=== PATIENT | male | born 1985 | race Caucasian/White ===

== ENCOUNTER 2018-02-18 21:22 | Inpatient (IN) ==
[2018-02-18] MEDS ORDERED: Piperacil/Tazo 3.375 GM Premix 50 ML IV.SIG ONE (22:25)
[2018-02-18] MEDS ORDERED: Vancomycin Inj 1,000 MG in Sodium Chlor 0.9% Inj 250 ML IV.SIG ONE (22:25)
[2018-02-18] MEDS ORDERED: Sod Chloride 0.9% Inj 1,000 ML IV.SIG ONE (22:25)
--- NOTE | 2018-02-18 22:35 | ED ---
HPI General Chief complaint: Skin/Abscess/Foreign Body Stated complaint: Spider bite Time Seen by Provider: 02/18/18 22:02 Source: patient Limitations: no limitations History of Present Illness HPI narrative: The patient is a 32 year old male who presents to the [facility] emergency department with a history of 2 weeks ago noticing what appeared to be an insect bite to the right hand between the second MCP and PIP joint dorsally. He reports that he was scratching the area when he first noticed it. He reports that subsequent to scratching at it became enlarged, painful, and began to drain a yellow drainage. He reports that he has had fevers associated with this. He does not have a thermometer, therefore he could not check his actual temperature. He reports that he obtained some antibiotic from a friend and completed 3 days of clindamycin of unknown dose at 3 times a day. He reports that prior to starting the antibiotic he had swelling into his hand and forearm. He reports that the swelling improved, however he ran out of the antibiotic 2 days ago and the swelling and pain have increased again. He reports having associated chills. He denies having any nausea, vomiting, or diarrhea. He denies any history of IV drug use. He reports that his last bowel movement was yesterday. He denies having any blood in his stool. He denies having any chest pain, chest pressure, or shortness of breath associated with this. He reports that his tetanus was last updated over 10 years ago. On review of systems otherwise, the patient denies having any cough, congestion, neck pain, abdominal pain, urinary symptoms, or neurologic symptoms. Related Data Home Medications Medication Instructions Recorded Confirmed No Known Home Medications 02/18/18 02/18/18 Allergies Allergy/AdvReac Type Severity Reaction Status Date / Time No Known Allergies Allergy Verified 02/18/18 21:50 Review of Systems ROS: all other systems reviewed are negative FOR[facility]LY [facility] Medical History Medical History Patient denies medical problems (Acute) Surgical History Surgical History No history of previous surgery (Acute) Family History Family History Other No pertinent family history Social History Social History Substance History: Active Abuse Second Hand Smoke Exposure: Yes Smoking Status: Current every day smoker Tobacco Type: Cigarettes Packs Per Day: 1.5 Cigarettes Per Day: 30.0 How Often Do You Have a Drink Containing Alcohol: Never Recent Travel in [facility] within the Last 8 Weeks: No Recent Out of Country Travel within the Last 8 Weeks: No Substance Abuse Detail Marijuana: Substance Use Status: Active Immunization History Tetanus Immunization: Unsure Exam Const General: cooperative, no acute distress and well developed Nutritional Appearance: well nourished Orientation: alert, awake and oriented x3 HENMT Head: normocephalic and atraumatic Nose: no nasal discharge and no epistaxis Mouth: moist mucous membranes Eyes Sclera: normal sclerae Pupils: PERRL Neck Neck: trachea midline and no JVD Resp Effort & Inspection: no use of accessory muscles Auscultation: clear to auscultation bilaterally Cardio Rate: regular rate Rhythm: regular rhythm Heart Sounds: no murmurs GI Inspection: non-distended Palpation: soft, no hepatosplenomegaly and nontender Back/Spine/Pelvis Back: no CVA tenderness Cervical Spine: No cervical spinal tenderness Thoracic/Lumbar Spine: No thoracic spinal tenderness and No lumbar spinal tenderness Skin General: dry skin (warm) Neuro General: alert, awake, oriented x3 and other (Grossly nonfocal.) Speech: speech normal Motor: no movement abnormalities noted Extrem General: normal to inspection (Except in the area of interest, the right upper extremity, right hand. The patient has a wound that is approximately 1-1/2 cm between the distal MCP and PIP joint of the second digit. The patient has diminished extension noted of this right second digit. The patient has swelling diffusely from the PIP to the MCP and swelling along the dorsum of the hand with tenderness. The patient reports having tingling sensations to the tip of the finger along the finger pad of the second digit. The wound is draining a yellow drainage. This was cultured.), no calf tenderness bilaterally , no clubbing, no cyanosis and no edema Psych Mood: congruent mood Affect: normal affect Judgment: judgment good Course Consultations Consultation #1: The patient's case including history, pertinent physical examination findings, and laboratory studies were discussed with Dr. Hanson, the hand surgeon file conversion operator. He explained that the patient will be seen in consultation. He requested that the patient be admitted to the hospitalist service. Time: 23:50 Initial Documented Vital Signs Temperature 97.7 F 02/18/18 21:45 Pulse Rate 85 02/18/18 21:45 Respiratory Rate 20 02/18/18 21:45 Blood Pressure 195/118 H 02/18/18 21:45 Pulse Oximetry 99 02/18/18 21:45 Last Documented Vital Signs Temperature 97.6 F 02/19/18 16:00 Pulse Rate 71 02/19/18 16:00 Respiratory Rate 16 02/19/18 16:00 Blood Pressure 128/80 02/19/18 16:00 Pulse Oximetry 98 02/19/18 16:00 Medical Decision Making MDM Narrative Medical decision making narrative: During the course of the patient's emergency department visit, the patient's history, examination, and differential diagnosis were reviewed with the patient. The patient was placed on a checking department supervisor with oximetry and frequent blood pressure monitoring. The patient had IV access obtained and blood work sent for analysis. The patient was initially provided normal saline 1 L IV fluid bolus, Zosyn 3.375 g IV, vancomycin 1 g IV. The patient was given Toradol for pain. Diagnostic studies are remarkable for a CBC that essentially is within normal limits, PT 10.7, PTT 27.9, chemistry is remarkable for GFR of 83, lactic acid within normal limits, C-reactive protein is 1.7, lipase 100, urinalysis is unremarkable, urine drug screen is positive for amphetamines and cannabinoids, chest x-ray shows no acute abnormality, hand x-ray shows soft tissue swelling of the index finger, no other acute abnormality. The patient's case was discussed with a hand surgeon who will see the patient in consultation. The patient's case including history, pertinent physical examination findings, and laboratory studies were discussed with Dr. Tomlinson. It was agreed that the patient would be admitted to the hospitalist service. The patient's results were discussed with the patient, including the plan of care. I explained that further testing and/ or monitoring is indicated based on the patient's history, examination, and/ or laboratory findings. Therefore, I recommended admission for additional evaluation. The patient expressed understanding and was agreeable with this plan. The patient was admitted to the hospital in stable condition and sent to a bed under the care of the [facility] service. Medical Screen Exam Complete: Yes Emergency Medical Condition: Yes Differential Diagnosis Differential Diagnosis: Osteomyelitis, versus sepsis from skin infection, versus deep hand infection Medical Records Medical records reviewed: Yes I reviewed the patient's medical records. Lab Data Lab results reviewed: Yes I reviewed the patient's lab results. Result diagrams: 02/18/18 22:42 02/18/18 22:42 Lab Results 02/18/18 02/18/18 02/18/18 Range/Units 22:42 22:42 22:42 WBC 7.4 (4.0-11.0) th/mm3 RBC 5.25 (4.50-5.90) mil/mm3 Hgb 15.4 (13.0-17.0) gm/dL Hct 44.0 (39.0-51.0) % MCV 83.8 (80.0-100.0) fL MCH 29.3 (27.0-34.0) pg MCHC 35.0 (32.0-36.0) % RDW 13.6 (11.6-17.2) % Plt Count 232 (150-450) th/mm3 MPV 8.9 (7.0-11.0) fL Neut % (Auto) 61.3 (16.0-70.0) % Lymph % (Auto) 25.9 (9.0-44.0) % [place] % (Auto) 9.8 H (0.0-8.0) % Eos % (Auto) 2.0 (0.0-4.0) % Baso % (Auto) 1.0 (0.0-2.0) % Neut # (Auto) 4.5 (1.8-7.7) th/mm3 Lymph # (Auto) 1.9 (1.0-4.8) th/mm3 [place] # (Auto) 0.7 (0.0-0.9) th/mm3 Eos # (Auto) 0.2 (0.0-0.4) th/mm3 Baso # (Auto) 0.1 (0.0-0.2) th/mm3 WBC Differential . Differential Comment Auto diff final ESR (0-15) mm/hr PT 10.7 (9.8-11.6) sec INR 1.1 Ratio APTT 27.9 (23.4-31.7) sec Sodium 139 (136-145) meq/L Potassium 3.7 (3.5-5.1) meq/L Chloride 106 (98-107) meq/L Carbon Dioxide 26.7 (21.0-32.0) meq/L Anion Gap 6 (5-15) meq/L BUN 17 (7-18) mg/dL Creatinine 1.03 (0.60-1.30) mg/dL Estimated GFR 83 L (>89) mL/min Random Glucose 79 (74-106) mg/dL Lactic Acid (0.4-2.0) mmol/L Calcium 9.1 (8.5-10.1) mg/dL Magnesium 1.9 (1.5-2.5) mg/dL Total Bilirubin 0.7 (0.2-1.0) mg/dL AST 20 (15-37) U/L ALT 19 (12-78) U/L Alkaline Phosphatase 83 (45-117) U/L C-Reactive Protein 1.70 H (0.00-0.30) mg/dL Total Protein 8.1 (6.4-8.2) g/dL Albumin 3.9 (3.4-5.0) g/dL Lipase 100 (73-393) U/L Urine Color (Yellw/Straw) Urine Clarity (Clear) Urine pH (5.0-8.5) Ur Specific [place] (1.002-1.035) Urine Protein (Neg-Trace) mg/dL Urine Glucose (UA) (Negative) mg/dL Urine Ketones (Negative) mg/dL Urine Occult Blood (Negative) Urine Nitrate (Negative) Urine Bilirubin (Negative) Urine Urobilinogen (Less than 2) mg/dL Ur Leukocyte Esterase (Negative) Urine RBC (0-3) /hpf Urine WBC (0-5) /hpf Urine Mucus (Occasional) /lpf Micro UA Comment Ur Microscopic Review Urine Culture Comments Urine Opiates Screen (Neg) Ur Barbiturates Screen (Neg) Ur Amphetamines Screen (Neg) U Benzodiazepines Scrn (Neg) Urine Cocaine Screen (Neg) U Cannabinoids Screen (Neg) 02/18/18 02/18/18 02/19/18 Range/Units 22:42 22:47 11:00 WBC (4.0-11.0) th/mm3 RBC (4.50-5.90) mil/mm3 Hgb (13.0-17.0) gm/dL Hct (39.0-51.0) % MCV (80.0-100.0) fL MCH (27.0-34.0) pg MCHC (32.0-36.0) % RDW (11.6-17.2) % Plt Count (150-450) th/mm3 MPV (7.0-11.0) fL Neut % (Auto) (16.0-70.0) % Lymph % (Auto) (9.0-44.0) % [place] % (Auto) (0.0-8.0) % Eos % (Auto) (0.0-4.0) % Baso % (Auto) (0.0-2.0) % Neut # (Auto) (1.8-7.7) th/mm3 Lymph # (Auto) (1.0-4.8) th/mm3 [place] # (Auto) (0.0-0.9) th/mm3 Eos # (Auto) (0.0-0.4) th/mm3 Baso # (Auto) (0.0-0.2) th/mm3 WBC Differential Differential Comment ESR 25 H (0-15) mm/hr PT (9.8-11.6) sec INR Ratio APTT (23.4-31.7) sec Sodium (136-145) meq/L Potassium (3.5-5.1) meq/L Chloride (98-107) meq/L Carbon Dioxide (21.0-32.0) meq/L Anion Gap (5-15) meq/L BUN (7-18) mg/dL Creatinine (0.60-1.30) mg/dL Estimated GFR (>89) mL/min Random Glucose (74-106) mg/dL Lactic Acid 1.0 (0.4-2.0) mmol/L Calcium (8.5-10.1) mg/dL Magnesium (1.5-2.5) mg/dL Total Bilirubin (0.2-1.0) mg/dL AST (15-37) U/L ALT (12-78) U/L Alkaline Phosphatase (45-117) U/L C-Reactive Protein (0.00-0.30) mg/dL Total Protein (6.4-8.2) g/dL Albumin (3.4-5.0) g/dL Lipase (73-393) U/L Urine Color Yellow (Yellw/Straw) Urine Clarity Clear (Clear) Urine pH 5.0 (5.0-8.5) Ur Specific [place] 1.023 (1.002-1.035) Urine Protein Negative (Neg-Trace) mg/dL Urine Glucose (UA) Negative (Negative) mg/dL Urine Ketones 20 (Negative) mg/dL Urine Occult Blood Negative (Negative) Urine Nitrate Negative (Negative) Urine Bilirubin Negative (Negative) Urine Urobilinogen Less than 2 (Less than 2) mg/dL Ur Leukocyte Esterase Negative (Negative) Urine RBC Less than 1 (0-3) /hpf Urine WBC 2 (0-5) /hpf Urine Mucus Few H (Occasional) /lpf Micro UA Comment Culture not ind Ur Microscopic Review Not Reportable Urine Culture Comments Culture not ind Urine Opiates Screen (Neg) Ur Barbiturates Screen (Neg) Ur Amphetamines Screen (Neg) U Benzodiazepines Scrn (Neg) Urine Cocaine Screen (Neg) U Cannabinoids Screen (Neg) 02/19/18 Range/Units 11:00 WBC (4.0-11.0) th/mm3 RBC (4.50-5.90) mil/mm3 Hgb (13.0-17.0) gm/dL Hct (39.0-51.0) % MCV (80.0-100.0) fL MCH (27.0-34.0) pg MCHC (32.0-36.0) % RDW (11.6-17.2) % Plt Count (150-450) th/mm3 MPV (7.0-11.0) fL Neut % (Auto) (16.0-70.0) % Lymph % (Auto) (9.0-44.0) % [place] % (Auto) (0.0-8.0) % Eos % (Auto) (0.0-4.0) % Baso % (Auto) (0.0-2.0) % Neut # (Auto) (1.8-7.7) th/mm3 Lymph # (Auto) (1.0-4.8) th/mm3 [place] # (Auto) (0.0-0.9) th/mm3 Eos # (Auto) (0.0-0.4) th/mm3 Baso # (Auto) (0.0-0.2) th/mm3 WBC Differential Differential Comment ESR (0-15) mm/hr PT (9.8-11.6) sec INR Ratio APTT (23.4-31.7) sec Sodium (136-145) meq/L Potassium (3.5-5.1) meq/L Chloride (98-107) meq/L Carbon Dioxide (21.0-32.0) meq/L Anion Gap (5-15) meq/L BUN (7-18) mg/dL Creatinine (0.60-1.30) mg/dL Estimated GFR (>89) mL/min Random Glucose (74-106) mg/dL Lactic Acid (0.4-2.0) mmol/L Calcium (8.5-10.1) mg/dL Magnesium (1.5-2.5) mg/dL Total Bilirubin (0.2-1.0) mg/dL AST (15-37) U/L ALT (12-78) U/L Alkaline Phosphatase (45-117) U/L C-Reactive Protein (0.00-0.30) mg/dL Total Protein (6.4-8.2) g/dL Albumin (3.4-5.0) g/dL Lipase (73-393) U/L Urine Color (Yellw/Straw) Urine Clarity (Clear) Urine pH (5.0-8.5) Ur Specific [place] (1.002-1.035) Urine Protein (Neg-Trace) mg/dL Urine Glucose (UA) (Negative) mg/dL Urine Ketones (Negative) mg/dL Urine Occult Blood (Negative) Urine Nitrate (Negative) Urine Bilirubin (Negative) Urine Urobilinogen (Less than 2) mg/dL Ur Leukocyte Esterase (Negative) Urine RBC (0-3) /hpf Urine WBC (0-5) /hpf Urine Mucus (Occasional) /lpf Micro UA Comment Ur Microscopic Review Urine Culture Comments Urine Opiates Screen Neg (Neg) Ur Barbiturates Screen Neg (Neg) Ur Amphetamines Screen Pos H (Neg) U Benzodiazepines Scrn Neg (Neg) Urine Cocaine Screen Neg (Neg) U Cannabinoids Screen Pos H (Neg) Imaging Data Radiologist's impression: Chest X-Ray 02/18/18 22:23 CONCLUSION: No acute cardiopulmonary disease identified. Hand X-Ray 02/18/18 22:23 CONCLUSION: Soft tissue swelling of the index finger. Otherwise within normal limits. ECG Data Attestation: I personally reviewed and interpreted this ECG as follows: Interpretation: The patient had an EKG done on arrival. The patient's EKG reveals a sinus rhythm, heart rate is 79, QRS duration is 97 ms, [address] segment elevation, T waves are inverted in V1. Discharge Plan Discharge Disposition Patient Disposition: ED Admit(ED Internal Use Only) Discharge Order Discharge Orders: ED Use Only Admit Order (Routine); Ordered 02/19/18 Ordered By: Latasha Betancourt Discharge Details Diagnosis: Infection of right hand Physicians Team ED Provider: Latasha Betancourt Primary Care Provider: UNKNOWN, Attending Provider: Nikos Bo Other Providers: Melchor Hanson Status ED Status: Left Department Discharge Information Discharge Date/Time: 02/19/18 01:34
[2018-02-18] MEDS ORDERED: Diphtheria/Tetanus/Pertussis Vaccine Inj 0.5 ML Syringe IM ONE (22:37)
[2018-02-18 23:00] LABS: Baso # (Auto) 0.1 th/mm3 (0.0-0.2); Eos # (Auto) 0.2 th/mm3 (0.0-0.4); Hemoglobin 15.4 gm/dL (13.0-17.0); Lymph # (Auto) 1.9 th/mm3 (1.0-4.8); Lymph % (Auto) 25.9 % (9.0-44.0); Mean Corpuscular Hemoglobin 29.3 pg (27.0-34.0); Mean Corpuscular Volume 83.8 fL (80.0-100.0); Mean Platelet Volume 8.9 fL (7.0-11.0); Mono # (Auto) 0.7 th/mm3 (0.0-0.9); Mono % (Auto) 9.8 % (0.0-8.0); Neut # (Auto) 4.5 th/mm3 (1.8-7.7); Neut % (Auto) 61.3 % (16.0-70.0); Platelet Count 232 th/mm3 (150-450); Red Blood Count 5.25 mil/mm3 (4.50-5.90); Red Cell Distribution Width 13.6 % (11.6-17.2); White Blood Count 7.4 th/mm3 (4.0-11.0)
[2018-02-18 23:10] LABS: Activated Partial Thrombo Time 27.9 sec (23.4-31.7); INR 1.1 Ratio; Prothrombin Time 10.7 sec (9.8-11.6)
[2018-02-18] MEDS ORDERED: Ketorolac Inj 30 MG/ML (IVP) Vial IV.PUSH ONE (23:10)
--- NOTE | 2018-02-18 23:10 | XR ---
EXAM DATE: 02/18/2018 11:01 PM EST AGE/SEX: 32 years / Male INDICATIONS: Short of breath. CLINICAL DATA: This is the patient's initial encounter. Patient reports that signs and symptoms have been present for 1 day and indicates a pain score of 0/10. MEDICAL/SURGICAL HISTORY: None. None. COMPARISON: No prior exams available for comparison. FINDINGS: Single AP view of the chest The lungs are clear. Cardiomediastinal silhouette within norm al limits. No evidence of pleural effusion or pneumothorax. Old left clavicle fracture noted. CONCLUSION: No acute cardiopulmonary disease identified. Electronically signed by: Jeffrey Cline MD 02/18/2018 11:09 PM EST
--- NOTE | 2018-02-18 23:11 | XR ---
EXAM DATE: 02/18/2018 11:03 PM EST AGE/SEX: 32 years / Male INDICATIONS: Left hand pain, possible spider bite. CLINICAL DATA: This is the patient's initial encounter. Patient reports that signs and symptoms have been present for 2 weeks and indicates a pain score of 6/10. MEDICAL/SURGICAL HISTORY: None. None. COMPARISON: No prior exams available for comparison. FINDINGS: 3 views left hand. Soft tissue swelling of the index finger noted. Bone alignment within normal limit s. No evidence of fracture. No radiopaque foreign body identified. No bone erosion. CONCLUSION: Soft tissue swelling of the index finger. Otherwise within normal limits. Electronically signed by: Jeffrey Cline MD 02/18/2018 11:10 PM EST
[2018-02-18 23:14] LABS: Alanine Aminotransferase 19 U/L (12-78)
[2018-02-18 23:16] LABS: Alkaline Phosphatase 83 U/L (45-117); Total Protein 8.1 g/dL (6.4-8.2)
[2018-02-18 23:19] LABS: Albumin 3.9 g/dL (3.4-5.0); Anion Gap 6 meq/L (5-15); Aspartate Aminotransferase 20 U/L (15-37); Blood Urea Nitrogen 17 mg/dL (7-18); Calcium 9.1 mg/dL (8.5-10.1); Carbon Dioxide 26.7 meq/L (21.0-32.0); Chloride 106 meq/L (98-107); Glomerular Filtration Rate 83 mL/min (>89); Glucose,Random 79 mg/dL (74-106); Lipase 100 U/L (73-393); Magnesium 1.9 mg/dL (1.5-2.5); Sodium 139 meq/L (136-145)
[2018-02-18 23:22] LABS: Potassium 3.7 meq/L (3.5-5.1)
[2018-02-19] MEDS ORDERED: Bisacodyl 10 MG Supp RECTAL PRN (00:20)
[2018-02-19] MEDS ORDERED: Acetaminophen 325 MG Tablet PO PRN (00:20)
[2018-02-19] MEDS ORDERED: Vancomycin Consult Pharmacy OTHER PRN (00:30)
[2018-02-19] MEDS: Sod Chloride 0.9% Inj 1,000 ML IV.CONT SCH ×3 (01:48→12:59)
[2018-02-19] MEDS ORDERED: Vancomycin Inj 1,000 MG in Sodium Chlor 0.9% Inj 250 ML IV.SIG ONE (02:00)
[2018-02-19] MEDS: Piperacil/Tazo 3.375 GM Premix 50 ML IV.SIG SCH ×3 (05:19→20:37)
--- NOTE | 2018-02-19 07:01 | P.HPIM ---
History of Present Illness Primary Care Physician: UNKNOWN History of Present Illness: 32-year-old male who presents with a 2-week history of worsening left base of first finger pain with purulent drainage. Patient reports subjective fevers. Denies any chest pain or shortness of breath. Patient denies any history of IV drug use. Patient reports using clindamycin 3 times a day times 3 days, provided by a colleague, however this ended 3 days ago and swelling has been getting worse.. Inpatient Certification: I certify that the inpatient services were ordered in accordance with Medicare regulations governing the order. This includes certification that hospital inpatient services are reasonable and necessary and in the case of services not specified as inpatient-only under 42 CFR 419.22(n), that they are appropriately provided as inpatient services in accordance to with the 2-midnight benchmark under 43 CFR 412.3(e) Estimated Total Length of Stay (Days): 3 Plans for Post Hospital Care: Not yet determined Review of Systems All other systems reviewed negative except as stated in HPI PMFSH - History History Provided By: Patient - Medical History Medical History: Medical History (Last Updated 02/21/18 @ 10:51 by Daniella Chairez) History of MRSA infection Onset Date: ~02/18/18 Patient denies medical problems - Surgical History Surgical History: Surgical History (Last Reviewed 02/21/18 @ 08:59 by Nargis Avila) No history of previous surgery - Family History Family History: Family History (Last Updated 02/19/18 @ 06:36 by Michael Tomlinson MD) Other No pertinent family history - Tobacco History Second Hand Smoke Exposure: Yes Tobacco Use In Past 30 Days: Yes Smoking Status: Current every day smoker Tobacco Type: Cigarettes Packs Per Day: 1.5 Cigarettes Per Day: 30.0 - Alcohol History How Often Do You Have a Drink Containing Alcohol: Never - Substance Use History Substance History: Active Abuse - Substance Use Type Marijuana Status: Active Route Used: Inhalation Reason for Use: Calm Down - Travel History Recent Travel in the [place] Within the Last 8 Weeks: No Recent Travel Out of the Country Within the Last 8 Weeks: No - Immunization History Tetanus Immunization: Unsure Medications and Allergies Active Medications: Active Medications Acetaminophen (Tylenol) 650 mg PO Q4H PRN PRN Reason: Temp > 100.4 Al Hydroxide/Mg Hydroxide (Milk Of Magnesia Liq) 30 ml PO Q12H PRN PRN Reason: Mild Constipation Bisacodyl (Dulcolax Supp) 10 mg RECTAL DAILY PRN PRN Reason: SEVERE CONSITIPATION Sodium Chloride (Ns Inj) 1,000 mls @ 100 mls/hr IV.CONT .Q10H [facility] Last Admin: 02/19/18 01:48 Dose: 100 mls/hr Piperacillin/Tazobactam/Dextrose (Zosyn 3.375 Gm Premix) 50 mls @ 100 mls/hr IV.SIG Q6HR [facility] Last Infusion: 02/19/18 05:53 Dose: Infused Lactulose (Lactulose Liq) 30 ml PO DAILY PRN PRN Reason: SEVERE CONSITIPATION Ondansetron HCl (Zofran Inj) 4 mg IV.PUSH Q6H PRN PRN Reason: NAUSEA OR VOMITING Pharmacy Profile Note (Vancomycin Consult Pharmacy) 1 each OTHER UNSCH PRN PRN Reason: Pharmacy to dose Sennosides (Senokot) 17.2 mg PO Q12H PRN PRN Reason: Moderate Constipation Sodium Chloride (Ns Flush) 2 ml IV.FLUSH BID SHERYL Sodium Chloride (Ns Flush) 2 ml IV.FLUSH PRN PRN PRN Reason: FLUSH AFTER USING IV ACCESS Allergies Allergy/AdvReac Type Severity Reaction Status Date / Time No Known Allergies Allergy Verified 02/18/18 21:50 Exam Vital signs: Vital Signs 02/18/18 21:45 02/18/18 21:50 02/19/18 01:04 Temperature 97.7 F Pulse Rate 85 88 86 Respiratory Rate 20 18 18 Blood Pressure 195/118 H 172/106 H 151/90 H Pulse Oximetry 99 96 96 02/19/18 03:51 Temperature 98.3 F Pulse Rate 65 Respiratory Rate 16 Blood Pressure 142/99 H Pulse Oximetry 97 Intake & Output 02/18/18 02/18/18 02/19/18 06:59 18:59 06:59 Intake Total 1600 / 1600 Output Total 0 / 0 Balance 1600 / 1600 Weight 96.9 kg Intake: IV 1600 / 1600 Zosyn 3.375 GM Premix 50 ML @ 100 / 100 100 mls/hr IV.SIG Q6HR [facility] Rx#: [id number] NS Inj 1,000 ML @ Wide Open IV. 1000 / 1000 SIG BOLUS ONE Rx#:[id number] Vancomycin Inj 1,000 MG In NS 500 / 500 Inj 250 ML @ 250 mls/hr IV.SIG ONCE ONE Rx#:[id number] Output: Urine 0 / 0 Other: # Voids 0 Weight On Admission 96.5 kg Narrative: GENERAL: Patient sitting up in bed. Appears comfortable. Oriented x3. SKIN: Warm and dry. HEAD: Atraumatic. Normocephalic. EYES: Pupils equal and round. No scleral icterus. No injection or drainage. ENT: No nasal bleeding or discharge. Mucous membranes pink and moist. NECK: Trachea midline. No JVD. CARDIOVASCULAR: Regular rate and rhythm. RESPIRATORY: No accessory muscle use. Clear to auscultation. Breath sounds equal bilaterally. GASTROINTESTINAL: Abdomen soft, non-tender, nondistended. Hepatic and splenic margins not palpable. MUSCULOSKELETAL: Extremities without clubbing, cyanosis, or edema. Base of left index finger with large 1.5 x 1.5 cm ulceration over the dorsal aspect of MCP, surrounding erythema NEUROLOGICAL: Awake and alert. No obvious cranial nerve deficits. Motor grossly within normal limits. Five out of 5 muscle strength in the arms and legs. Normal speech. PSYCHIATRIC: Appropriate mood and affect; insight and judgment normal. Results - Labs CBC & Chem 7: 02/20/18 09:28 02/20/18 09:28 Labs: Short CBC 02/18/18 Range/Units 22:42 WBC 7.4 (4.0-11.0) th/mm3 Hgb 15.4 (13.0-17.0) gm/dL Hct 44.0 (39.0-51.0) % Plt Count 232 (150-450) th/mm3 BMP 02/18/18 22:42 Sodium 139 Potassium 3.7 Chloride 106 Carbon Dioxide 26.7 BUN 17 Creatinine 1.03 Calcium 9.1 Liver Function 02/18/18 Range/Units 22:42 Total Bilirubin 0.7 (0.2-1.0) mg/dL AST 20 (15-37) U/L ALT 19 (12-78) U/L Alkaline Phosphatase 83 (45-117) U/L Albumin 3.9 (3.4-5.0) g/dL - Imaging Impressions Chest X-Ray 02/18/18 22:23 CONCLUSION: No acute cardiopulmonary disease identified. Hand X-Ray 02/18/18 22:23 CONCLUSION: Soft tissue swelling of the index finger. Otherwise within normal limits. Caprini VTE Risk Assessment Caprini VTE Risk Assessment: No/Low Risk (score <= 1) Caprini Risk Assessment Model: Point Value = 1 Point Value = 2 Point Value = 3 Point Value = 5 Age 41-60 Minor surgery BMI > 25 kg/m2 Swollen legs Varicose veins or History of unexplained or recurrent spontaneous Oral contraceptives or hormone replacement Sepsis (< 1 month) Serious lung disease, including pneumonia (< 1 month) Abnormal pulmonary function Acute myocardial infarction Congestive heart failure (< 1 month) History of inflammatory bowel disease Medical patient at bed rest Age 61-74 Arthroscopic surgery Major open surgery (> 45 min) Laparoscopic surgery (> 45 min) Malignancy Confined to bed (> 72 hours) Immobilizing plaster cast Central venous access Age >= 75 History of VTE Family history of VTE Factor V Leiden Prothrombin [id number] Lupus anticoagulant Anticardiolipin antibodies Elevated serum homocysteine Heparin-induced thrombocytopenia Other congenital or acquired thrombophilia Stroke (< 1 month) Elective arthroplasty Hip, pelvis, or leg fracture Acute spinal cord injury (< 1 month) Prophylaxis Regimen: Total Risk Factor Score Risk Level Prophylaxis Regimen 0-1 Low Early ambulation 2 Moderate Order ONE of the following: *Sequential Compression Device (SCD) *Heparin 5000 units SQ BID 3-4 Higher Order ONE of the following medications: *Heparin 5000 units SQ TID *Enoxaparin/Lovenox 40 mg SQ daily (WT < 150 kg, CrCl > 30 mL/min) *Enoxaparin/Lovenox 30 mg SQ daily (WT < 150 kg, CrCl > 10-29 mL/min) *Enoxaparin/Lovenox 30 mg SQ BID (WT < 150 kg, CrCl > 30 mL/min) AND/OR *Sequential Compression Device (SCD) 5 or more Highest Order ONE of the following medications: *Heparin 5000 units SQ TID (Preferred with Epidurals) *Enoxaparin/Lovenox 40 mg SQ daily (WT < 150 kg, CrCl > 30 mL/min) *Enoxaparin/Lovenox 30 mg SQ daily (WT < 150 kg, CrCl > 10-29 mL/min) *Enoxaparin/Lovenox 30 mg SQ BID (WT < 150 kg, CrCl > 30 mL/min) AND *Sequential Compression Device (SCD) Assessment and Plan - Plan //Left hand ulceration over first MCP joint. -With suspected tendon involvement. X-ray revealed with no obvious osteomyelitis. Will consult hand surgery. = Continue broad-spectrum antibiotics. H&P: Quality - VTE Deep Vein Thrombosis/Pulmonary Embolism Present on Admission: No
--- NOTE | 2018-02-19 08:27 | ECG ---
Date Performed: 02/18/2018 Time Performed: 22:42:03 PTAGE: 32 years EKG: Sinus rhythm NONSPECIFIC ST ELEVATION BORDERLINE ECG NO PREVIOUS TRACING DOCTOR: Israel Mcwilliams Interpretating Date/Time 02/19/2018 08:24:30
[2018-02-19 12:33] LABS: Bilirubin,Urine Negative (Negative); Clarity,Urine Clear (Clear); Color,Urine Yellow (Yellw/Straw); Glucose,Urine (UA) Negative (Negative); Leukocyte Esterase,Urine Negative (Negative); Mucus,Urine Few /lpf (Occasional); Nitrite,Urine Negative (Negative); Specific Gravity,Urine 1.023 (1.002-1.035)
[2018-02-19 12:34] LABS: Amphetamine Screen,Urine Pos (Neg); Barbiturate Screen,Urine Neg (Neg); Cannabinoid Screen,Urine Pos (Neg); Cocaine Screen,Urine Neg (Neg)
[2018-02-19 12:36] LABS: Opiate Screen,Urine Neg (Neg)
[2018-02-19] MEDS: Vancomycin Inj 1,500 MG in Sodium Chlor 0.9% Inj 500 ML IV.SIG SCH (15:22)
--- NOTE | 2018-02-19 16:04 | P.PNIM ---
Subjective Interval history: Patient seen and examined this morning at the bedside says he does not currently have pain patient reports a bug bite 2 weeks ago which likely got infected. 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 no murmur resp: cta bilaterally gi: soft, non tender, non distended, + bowel sounds' ext: 2+ radial pulse bilaterally UE msk: 2nd digit ulceration with minimal tenderness, no pus noted. + swelling Results Labs CBC & Chem 7: 02/18/18 22:42 02/18/18 22:42 Labs: Microbiology 02/18/18 22:42 Blood - Peripheral Aerobic Blood Culture - Preliminary No growth in 1 day 02/18/18 22:42 Blood - Peripheral Anaerobic Blood Culture - Preliminary No growth in 1 day 02/18/18 22:47 Blood - Peripheral Aerobic Blood Culture - Preliminary No growth in 1 day 02/18/18 22:47 Blood - Peripheral Anaerobic Blood Culture - Preliminary No growth in 1 day 02/18/18 23:20 Abscess - Finger Gram Stain - Final Imaging Imaging: Impressions Chest X-Ray 02/18/18 22:23 CONCLUSION: No acute cardiopulmonary disease identified. Hand X-Ray 02/18/18 22:23 CONCLUSION: Soft tissue swelling of the index finger. Otherwise within normal limits. Assessment and Plan Plan orthopedics: Hand ulceration - ortho-hand consulted and recommendation PENDING - continue abx emperically for now - wound cultures obtained in the ED - hand elevation and warm compression to aid blood flow code: fc dvt ppx dispo: med/surg diet: npo currently. advance for dinner if no planned intervention. Progress Note: Quality VTE Deep Vein Thrombosis/Pulmonary Embolism Present on Admission: No
--- NOTE | 2018-02-19 16:25 | P.CON ---
History of Present Illness Service: Plastic hand surgery Consult date: 02/19/18 Primary Care Provider: UNKNOWN History of Present Illness: 32-year-old male who presented to the emergency department with worsening left dorsal index finger pain. Patient reports that this first began roughly 2 weeks ago with what he feels may have been an insect bite. The pain and swelling gradually worsened. Patient endorses normal sensation to the index fingertip. He complains of stiffness. Except as noted in the HPI review of systems negative to presenting complaint Family history noncontributory to presenting complaint Medical history/surgical history denies Medication list reviewed No known drug allergies Social history patient positive for amphetamine and marijuana use PMFSH - History History Provided By: Patient - Medical History Medical History: Medical History (Last Reviewed 02/18/18 @ 22:38 by Latasha Betancourt MD) Patient denies medical problems - Surgical History Surgical History: Surgical History (Last Reviewed 02/18/18 @ 22:38 by Latasha Betancourt MD) No history of previous surgery - Family History Family History: Family History (Last Updated 02/19/18 @ 06:36 by Michael Tomlinson MD) Other No pertinent family history - Tobacco History Second Hand Smoke Exposure: Yes Tobacco Use In Past 30 Days: Yes Smoking Status: Current every day smoker Tobacco Type: Cigarettes Packs Per Day: 1.5 Cigarettes Per Day: 30.0 - Alcohol History How Often Do You Have a Drink Containing Alcohol: Never - Substance Use History Substance History: Active Abuse - Substance Use Type Marijuana Status: Active Route Used: Inhalation Reason for Use: Calm Down - Travel History Recent Travel in the [place] Within the Last 8 Weeks: No Recent Travel Out of the Country Within the Last 8 Weeks: No - Immunization History Tetanus Immunization: Unsure Medications and Allergies Active Medications: Active Medications Acetaminophen (Tylenol) 650 mg PO Q4H PRN PRN Reason: Temp > 100.4 Al Hydroxide/Mg Hydroxide (Milk Of Magnesia Liq) 30 ml PO Q12H PRN PRN Reason: Mild Constipation Bisacodyl (Dulcolax Supp) 10 mg RECTAL DAILY PRN PRN Reason: SEVERE CONSITIPATION Sodium Chloride (Ns Inj) 1,000 mls @ 100 mls/hr IV.CONT .Q10H SHERYL Last Admin: 02/19/18 12:59 Dose: 100 mls/hr Piperacillin/Tazobactam/Dextrose (Zosyn 3.375 Gm Premix) 50 mls @ 100 mls/hr IV.SIG Q6HR SHERYL Last Infusion: 02/19/18 13:39 Dose: Infused Vancomycin HCl 1,500 mg/ (Sodium Chloride) 515 mls @ 257.5 mls/hr IV.SIG Q12H SHERYL Last Admin: 02/19/18 15:22 Dose: 257.5 mls/hr Lactulose (Lactulose Liq) 30 ml PO DAILY PRN PRN Reason: SEVERE CONSITIPATION Miscellaneous Information ([facility] Ordered Lab Info) 0 each OTHER ONCE ONE Stop: 02/20/18 13:46 Morphine Sulfate (Morphine Inj) 2 mg IV.PUSH Q6HR PRN PRN Reason: PAIN SCALE 1 TO 10 Ondansetron HCl (Zofran Inj) 4 mg IV.PUSH Q6H PRN PRN Reason: NAUSEA OR VOMITING Pharmacy Profile Note (Vancomycin Consult Pharmacy) 1 each OTHER UNSCH PRN PRN Reason: Pharmacy to dose Sennosides (Senokot) 17.2 mg PO Q12H PRN PRN Reason: Moderate Constipation Sodium Chloride (Ns Flush) 2 ml IV.FLUSH BID [facility] Last Admin: 02/19/18 08:49 Dose: 2 ml Sodium Chloride (Ns Flush) 2 ml IV.FLUSH PRN PRN PRN Reason: FLUSH AFTER USING IV ACCESS Allergies Allergy/AdvReac Type Severity Reaction Status Date / Time No Known Allergies Allergy Verified 02/18/18 21:50 Home Medications Medication Instructions Recorded Confirmed Type No Known Home Medications 02/18/18 02/18/18 History Physical Exam Vital signs: Vital Signs 02/18/18 21:45 02/18/18 21:50 02/19/18 01:04 Temperature 97.7 F Pulse Rate 85 88 86 Respiratory Rate 20 18 18 Blood Pressure 195/118 H 172/106 H 151/90 H Pulse Oximetry 99 96 96 02/19/18 03:51 02/19/18 07:34 02/19/18 08:00 Temperature 98.3 F 98.2 F Pulse Rate 65 71 Respiratory Rate 16 16 17 Blood Pressure 142/99 H 141/88 H Pulse Oximetry 97 97 02/19/18 12:00 Temperature 97.4 F L Pulse Rate 59 L Respiratory Rate 16 Blood Pressure 115/78 Pulse Oximetry 100 Intake & Output 02/18/18 02/19/18 02/19/18 18:59 06:59 18:59 Intake Total 1600 / 1600 1050 / 1050 Output Total 0 / 0 Balance 1600 / 1600 1050 / 1050 Weight 96.9 kg Intake: IV 1600 / 1600 1050 / 1050 NS Inj 1,000 ML @ 100 mls/hr IV 1000 / 1000 .CONT .Q10H SHERYL Rx#:[id number] Zosyn 3.375 GM Premix 50 ML @ 100 / 100 50 / 50 100 mls/hr IV.SIG Q6HR SHERYL Rx#: [id number] NS Inj 1,000 ML @ Wide Open IV. 1000 / 1000 SIG BOLUS ONE Rx#:[id number] Vancomycin Inj 1,000 MG In NS 500 / 500 Inj 250 ML @ 250 mls/hr IV.SIG ONCE ONE Rx#:[id number] Output: Urine 0 / 0 Other: # Voids 0 Weight On Admission 96.5 kg Narrative: No apparent anxiety moist mucous membranes PERRLA skin without rash respirations nonlabored moves all 4 extremities to command digits warm well perfused Dorsal left index finger with 13 mm in diameter wound over the proximal phalanx Mild surrounding erythema extending onto the dorsal hand No fluctuance appreciated No exposed tendon Three-view x-ray images of the left hand personally reviewed by me showing no acute findings except for soft tissue edema Results - Labs CBC & Chem 7: 02/18/18 22:42 02/18/18 22:42 Labs: Laboratory Results - last 24 hr 02/18/18 02/18/18 02/18/18 22:42 22:42 22:42 WBC 7.4 RBC 5.25 Hgb 15.4 Hct 44.0 MCV 83.8 MCH 29.3 MCHC 35.0 RDW 13.6 Plt Count 232 MPV 8.9 Neut % (Auto) 61.3 Lymph % (Auto) 25.9 [place] % (Auto) 9.8 H Eos % (Auto) 2.0 Baso % (Auto) 1.0 Neut # (Auto) 4.5 Lymph # (Auto) 1.9 [place] # (Auto) 0.7 Eos # (Auto) 0.2 Baso # (Auto) 0.1 WBC Differential . Differential Comment Auto diff final ESR PT 10.7 INR 1.1 APTT 27.9 Sodium 139 Potassium 3.7 Chloride 106 Carbon Dioxide 26.7 Anion Gap 6 BUN 17 Creatinine 1.03 Estimated GFR 83 L Random Glucose 79 Lactic Acid Calcium 9.1 Magnesium 1.9 Total Bilirubin 0.7 AST 20 ALT 19 Alkaline Phosphatase 83 C-Reactive Protein 1.70 H Total Protein 8.1 Albumin 3.9 Lipase 100 Urine Color Urine Clarity Urine pH Ur Specific [place] Urine Protein Urine Glucose (UA) Urine Ketones Urine Occult Blood Urine Nitrate Urine Bilirubin Urine Urobilinogen Ur Leukocyte Esterase Urine RBC Urine WBC Urine Mucus Micro UA Comment Ur Microscopic Review Urine Culture Comments Urine Opiates Screen Ur Barbiturates Screen Ur Amphetamines Screen U Benzodiazepines Scrn Urine Cocaine Screen U Cannabinoids Screen 02/18/18 02/18/18 02/19/18 22:42 22:47 11:00 WBC RBC Hgb Hct MCV MCH MCHC RDW Plt Count MPV Neut % (Auto) Lymph % (Auto) [place] % (Auto) Eos % (Auto) Baso % (Auto) Neut # (Auto) Lymph # (Auto) [place] # (Auto) Eos # (Auto) Baso # (Auto) WBC Differential Differential Comment ESR 25 H PT INR APTT Sodium Potassium Chloride Carbon Dioxide Anion Gap BUN Creatinine Estimated GFR Random Glucose Lactic Acid 1.0 Calcium Magnesium Total Bilirubin AST ALT Alkaline Phosphatase C-Reactive Protein Total Protein Albumin Lipase Urine Color Yellow Urine Clarity Clear Urine pH 5.0 Ur Specific [place] 1.023 Urine Protein Negative Urine Glucose (UA) Negative Urine Ketones 20 Urine Occult Blood Negative Urine Nitrate Negative Urine Bilirubin Negative Urine Urobilinogen Less than 2 Ur Leukocyte Esterase Negative Urine RBC Less than 1 Urine WBC 2 Urine Mucus Few H Micro UA Comment Culture not ind Ur Microscopic Review Not Reportable Urine Culture Comments Culture not ind Urine Opiates Screen Ur Barbiturates Screen Ur Amphetamines Screen U Benzodiazepines Scrn Urine Cocaine Screen U Cannabinoids Screen 02/19/18 11:00 WBC RBC Hgb Hct MCV MCH MCHC RDW Plt Count MPV Neut % (Auto) Lymph % (Auto) [place] % (Auto) Eos % (Auto) Baso % (Auto) Neut # (Auto) Lymph # (Auto) [place] # (Auto) Eos # (Auto) Baso # (Auto) WBC Differential Differential Comment ESR PT INR APTT Sodium Potassium Chloride Carbon Dioxide Anion Gap BUN Creatinine Estimated GFR Random Glucose Lactic Acid Calcium Magnesium Total Bilirubin AST ALT Alkaline Phosphatase C-Reactive Protein Total Protein Albumin Lipase Urine Color Urine Clarity Urine pH Ur Specific [place] Urine Protein Urine Glucose (UA) Urine Ketones Urine Occult Blood Urine Nitrate Urine Bilirubin Urine Urobilinogen Ur Leukocyte Esterase Urine RBC Urine WBC Urine Mucus Micro UA Comment Ur Microscopic Review Urine Culture Comments Urine Opiates Screen Neg Ur Barbiturates Screen Neg Ur Amphetamines Screen Pos H U Benzodiazepines Scrn Neg Urine Cocaine Screen Neg U Cannabinoids Screen Pos H - Imaging Impressions Chest X-Ray 02/18/18 22:23 CONCLUSION: No acute cardiopulmonary disease identified. Hand X-Ray 02/18/18 22:23 CONCLUSION: Soft tissue swelling of the index finger. Otherwise within normal limits. Assessment and Plan - Assessment (1) Infection of right hand Code(s): L08.9 - Local infection of the skin and subcutaneous tissue, unspecified Status: Acute - Plan 32-year-old male with cellulitis and wound over the dorsal left index finger proximal phalanx Agree with IV antibiotics Silvadene cream twice daily to wound and cover with dry dressing
[2018-02-19] MEDS: Morphine Inj 4 MG/ML Vial IV.PUSH PRN ×2 (17:42→23:42)
[2018-02-20] MEDS: Piperacil/Tazo 3.375 GM Premix 50 ML IV.SIG SCH ×5 (01:14→23:22)
[2018-02-20] MEDS: Vancomycin Inj 1,500 MG in Sodium Chlor 0.9% Inj 500 ML IV.SIG SCH ×2 (02:06→15:59)
[2018-02-20] MEDS: Sod Chloride 0.9% Inj 1,000 ML IV.CONT SCH ×4 (07:30→23:00)
[2018-02-20] MEDS: Morphine Inj 4 MG/ML Vial IV.PUSH PRN ×3 (07:43→22:21)
[2018-02-20 09:44] LABS: Baso # (Auto) 0.1 th/mm3 (0.0-0.2); Baso % (Auto) 1.8 % (0.0-2.0); Eos # (Auto) 0.2 th/mm3 (0.0-0.4); Eos % (Auto) 3.6 % (0.0-4.0); Hematocrit 41.4 % (39.0-51.0); Hemoglobin 14.3 gm/dL (13.0-17.0); Lymph # (Auto) 1.8 th/mm3 (1.0-4.8); Lymph % (Auto) 28.9 % (9.0-44.0); Mean Corpuscular HGB Conc 34.5 % (32.0-36.0); Mean Corpuscular Hemoglobin 29.6 pg (27.0-34.0); Mean Corpuscular Volume 85.8 fL (80.0-100.0); Mean Platelet Volume 8.6 fL (7.0-11.0); Mono # (Auto) 0.6 th/mm3 (0.0-0.9); Neut # (Auto) 3.5 th/mm3 (1.8-7.7); Neut % (Auto) 55.7 % (16.0-70.0); Platelet Count 186 th/mm3 (150-450); Red Blood Count 4.82 mil/mm3 (4.50-5.90); Red Cell Distribution Width 13.6 % (11.6-17.2); White Blood Count 6.4 th/mm3 (4.0-11.0)
[2018-02-20 09:49] LABS: INR 1.1 Ratio; Prothrombin Time 11.3 sec (9.8-11.6)
[2018-02-20 10:18] LABS: Alanine Aminotransferase 12 U/L (12-78); Albumin 2.8 g/dL (3.4-5.0); Alkaline Phosphatase 64 U/L (45-117); Anion Gap 9 meq/L (5-15); Aspartate Aminotransferase 11 U/L (15-37); Blood Urea Nitrogen 8 mg/dL (7-18); Carbon Dioxide 26.1 meq/L (21.0-32.0); Chloride 110 meq/L (98-107); Glomerular Filtration Rate Greater Than 89 mL/min (>89); Glucose,Random 87 mg/dL (74-106); Magnesium 2.1 mg/dL (1.5-2.5); Potassium 3.5 meq/L (3.5-5.1); Sodium 145 meq/L (136-145); Total Protein 6.1 g/dL (6.4-8.2)
[2018-02-20] MEDS ORDERED: Pharmacy Ordered Lab Info OTHER ONE (13:45)
--- NOTE | 2018-02-20 14:54 | P.PN ---
Subjective Interval history: Patient reports that his pain is slowly improving as is the erythema and swelling. Physical Exam Vital signs: Vital Signs 02/19/18 16:00 02/19/18 20:00 02/20/18 00:00 Temperature 97.6 F 97.5 F L 97.8 F Pulse Rate 71 70 75 Respiratory Rate 16 18 18 Blood Pressure 128/80 126/73 123/74 Pulse Oximetry 98 100 100 02/20/18 04:00 02/20/18 08:00 02/20/18 12:00 Temperature 97.9 F 97.7 F 98.9 F Pulse Rate 59 L 59 L 74 Respiratory Rate 18 16 18 Blood Pressure 117/64 135/80 130/78 Pulse Oximetry 98 98 98 Intake & Output 02/19/18 02/20/18 02/20/18 18:59 06:59 18:59 Intake Total 1565 / 1565 615 / 615 1100 / 1100 Output Total 600 / 600 550 / 550 Balance 1565 / 1565 15 / 15 550 / 550 Intake: IV 1565 / 1565 615 / 615 1100 / 1100 NS Inj 1,000 ML @ 100 mls/hr IV 1000 / 1000 1000 / 1000 .CONT .Q10H SHERYL Rx#:[id number] Zosyn 3.375 GM Premix 50 ML @ 50 / 50 100 / 100 100 / 100 100 mls/hr IV.SIG Q6HR SHERYL Rx#: [id number] Vancomycin Inj 1,500 MG In NS 515 / 515 515 / 515 Inj 500 ML @ 257.5 mls/hr IV. SIG Q12H SHERYL Rx#:[id number] Output: Urine 600 / 600 550 / 550 Other: Date of Last Bowel Movement 02/16/18 02/16/18 Narrative: Left dorsal small finger wound gently debrided of fibrinous exudate At the base of the wound is granulation tissue No tendon exposure Erythema largely resolved Mild to moderate dorsal hand edema remains, though minimally tender Central slip and terminal tendon intact Results - Labs CBC & Chem 7: 02/20/18 09:28 02/20/18 09:28 Laboratory Results - last 24 hr 02/20/1818 02/20/18 09:28 09:28 09:28 WBC 6.4 RBC 4.82 Hgb 14.3 Hct 41.4 MCV 85.8 MCH 29.6 MCHC 34.5 RDW 13.6 Plt Count 186 MPV 8.6 Neut % (Auto) 55.7 Lymph % (Auto) 28.9 [place] % (Auto) 10.0 H Eos % (Auto) 3.6 Baso % (Auto) 1.8 Neut # (Auto) 3.5 Lymph # (Auto) 1.8 [place] # (Auto) 0.6 Eos # (Auto) 0.2 Baso # (Auto) 0.1 WBC Differential . Differential Comment Auto diff final PT 11.3 INR 1.1 Sodium 145 Potassium 3.5 Chloride 110 H Carbon Dioxide 26.1 Anion Gap 9 BUN 8 Creatinine 0.83 Estimated GFR Greater than 89 Random Glucose 87 Calcium 8.0 L D Magnesium 2.1 Total Bilirubin 0.4 AST 11 L ALT 12 Alkaline Phosphatase 64 Total Protein 6.1 L D Albumin 2.8 L D Vancomycin Trough 02/20/18 13:45 WBC RBC Hgb Hct MCV MCH MCHC RDW Plt Count MPV Neut % (Auto) Lymph % (Auto) [place] % (Auto) Eos % (Auto) Baso % (Auto) Neut # (Auto) Lymph # (Auto) [place] # (Auto) Eos # (Auto) Baso # (Auto) WBC Differential Differential Comment PT INR Sodium Potassium Chloride Carbon Dioxide Anion Gap BUN Creatinine Estimated GFR Random Glucose Calcium Magnesium Total Bilirubin AST ALT Alkaline Phosphatase Total Protein Albumin Vancomycin Trough 15.1 H Microbiology 02/18/18 23:20 Abscess - Finger Gram Stain - Final 02/18/18 23:20 Abscess - Finger Wound Culture - Preliminary S. aureus MRSA 02/18/18 22:42 Blood - Peripheral Aerobic Blood Culture - Preliminary No growth in 2 days 02/18/18 22:42 Blood - Peripheral Anaerobic Blood Culture - Preliminary No growth in 2 days 02/18/18 22:47 Blood - Peripheral Aerobic Blood Culture - Preliminary No growth in 2 days 02/18/18 22:47 Blood - Peripheral Anaerobic Blood Culture - Preliminary No growth in 2 days Assessment and Plan - Assessment (1) Infection of right hand Code(s): L08.9 - Local infection of the skin and subcutaneous tissue, unspecified Status: Acute - Plan 32-year-old male with cellulitis and wound over the dorsal left index finger proximal phalanx Consider transition to p.o. antibiotics per primary When patient discharge, please discharge patient with prescription for Silvadene with 2 refills Patient instructed to wash the wound with warm soapy water, pat dry, and then filled the wound with Silvadene, then cover with a dry dressing, twice daily Please have patient follow-up in hand surgery clinic in 1 week Please call with questions
--- NOTE | 2018-02-20 15:35 | P.CONID ---
History of Present Illness Service: Infectious disease Consult date: 02/20/18 Requesting Physician: Nikos Bo Reason for Consult: Evaluate patient with infection of the left index finger Primary Care Provider: UNKNOWN History of Present Illness: Patient seen and examined. Records reviewed. Patient is a 32-year-old male, presented to the hospital complaining of increasing pain on his left hand. Patient apparently had what looked like a bug bite on his left index finger about 2 weeks ago. He had a brief episode of fevers. About 3 days after that episode he started noticing swelling and redness on his left hand as well as swelling going up to his left upper arm. Patient stated he got some clindamycin from the streets and took about 3 days of the antibiotics. The swelling in his arm and his left hand improved, but the redness started getting worse, and he also started experiencing increasing pain. He developed noted what looks like a pus pocket on his left index finger. He denies any sore throat or any other respiratory complaint. There is been no nausea or vomiting. He presented to the hospital for further evaluation and treatment. Since admission he has not had any fever. His WBC is normal. Sed rate is 25, and C-reactive protein is 1.7. The pus pocket was unroofed, and culture from that is now reported as growing MRSA. Infectious disease consultation has been requested to assist with evaluation and treatment. Review of Systems Constitutional: Denies chills, Denies fever(s), Denies lack of energy Eyes: Denies discharge, Denies dry eyes Ears, Nose, Mouth, and Throat: Denies difficulty swallowing, Denies headache(s) , Denies mouth lesions, Denies nasal congestion, Denies nasal discharge, Denies pain with swallowing, Denies sore throat Cardiovascular: Denies chest pain, Denies shortness of breath Respiratory: Denies chest congestion, Denies cough, Denies shortness of breath Gastrointestinal: Denies abdominal pain, Denies loose stools, Denies nausea, Denies pain with swallowing, Denies vomiting Genitourinary: Denies difficulty urinating, Denies painful urination Musculoskeletal: Reports joint pain, Reports joint swelling Skin/Breast: Reports sores, Reports wounds Neurologic: Denies headache(s) PMFSH - History History Provided By: Patient - Medical History Medical History: Medical History (Last Reviewed 02/20/18 @ 15:30 by Evelia Hodge MD) Patient denies medical problems - Surgical History Surgical History: Surgical History (Last Reviewed 02/20/18 @ 15:30 by Evelia Hodge MD) No history of previous surgery - Family History Family History: Family History (Last Reviewed 02/20/18 @ 15:30 by Evelia Hodge MD) Other No pertinent family history - Tobacco History Second Hand Smoke Exposure: Yes Tobacco Use In Past 30 Days: Yes Smoking Status: Current every day smoker Tobacco Type: Cigarettes Packs Per Day: 1.5 Cigarettes Per Day: 30.0 - Alcohol History How Often Do You Have a Drink Containing Alcohol: Never - Substance Use History Substance History: Active Abuse - Substance Use Type Marijuana Status: Active Route Used: Inhalation, Intravenously (adderal) Reason for Use: Calm Down - Travel History Recent Travel in the [place] Within the Last 8 Weeks: No Recent Travel Out of the Country Within the Last 8 Weeks: No - Immunization History Tetanus Immunization: Unsure Medications and Allergies Active Medications: Active Medications Acetaminophen (Tylenol) 650 mg PO Q4H PRN PRN Reason: Temp > 100.4 Al Hydroxide/Mg Hydroxide (Milk Of Magnesia Liq) 30 ml PO Q12H PRN PRN Reason: Mild Constipation Bisacodyl (Dulcolax Supp) 10 mg RECTAL DAILY PRN PRN Reason: SEVERE CONSITIPATION Sodium Chloride (Ns Inj) 1,000 mls @ 100 mls/hr IV.CONT .Q10H [facility] Last Admin: 02/20/18 09:45 Dose: 100 mls/hr Piperacillin/Tazobactam/Dextrose (Zosyn 3.375 Gm Premix) 50 mls @ 100 mls/hr IV.SIG Q6HR [facility] Last Infusion: 02/20/18 13:19 Dose: Infused Vancomycin HCl 1,500 mg/ (Sodium Chloride) 515 mls @ 257.5 mls/hr IV.SIG Q12H [facility] Last Infusion: 02/20/18 04:34 Dose: Infused Lactulose (Lactulose Liq) 30 ml PO DAILY PRN PRN Reason: SEVERE CONSITIPATION Miscellaneous Information ([facility] Ordered Lab Info) 0 each OTHER ONCE ONE Stop: 02/22/18 01:46 Morphine Sulfate (Morphine Inj) 2 mg IV.PUSH Q6HR PRN PRN Reason: PAIN SCALE 1 TO 10 Last Admin: 02/20/18 07:43 Dose: 2 mg Nicotine (Habitrol 21 Mg Patch.24 Hr) 1 patch T-DERMAL DAILY [facility] Ondansetron HCl (Zofran Inj) 4 mg IV.PUSH Q6H PRN PRN Reason: NAUSEA OR VOMITING Patch Removal (Remove Old Patch) 1 each T-DERMAL ONCE ONE Stop: 02/20/18 20:01 Patch Removal (Remove Old Patch) 1 each T-DERMAL DAILY [facility] Pharmacy Profile Note (Vancomycin Consult Pharmacy) 1 each OTHER UNSCH PRN PRN Reason: Pharmacy to dose Sennosides (Senokot) 17.2 mg PO Q12H PRN PRN Reason: Moderate Constipation Silver Sulfadiazine (Silvadene 1% Cream (50 Gm)) 1 applicatio TOPICAL BID [facility] Last Admin: 02/20/18 09:40 Dose: 1 applicatio Sodium Chloride (Ns Flush) 2 ml IV.FLUSH BID [facility] Last Admin: 02/20/18 09:40 Dose: 2 ml Sodium Chloride (Ns Flush) 2 ml IV.FLUSH PRN PRN PRN Reason: FLUSH AFTER USING IV ACCESS Allergies Allergy/AdvReac Type Severity Reaction Status Date / Time No Known Allergies Allergy Verified 02/18/18 21:50 Home Medications Medication Instructions Recorded Confirmed Type No Known Home Medications 02/18/18 02/18/18 History Exam Vital signs: Vital Signs 02/19/18 16:00 02/19/18 20:00 02/20/18 00:00 Temperature 97.6 F 97.5 F L 97.8 F Pulse Rate 71 70 75 Respiratory Rate 18 Blood Pressure 128/80 126/73 123/74 Pulse Oximetry 98 100 100 02/20/18 04:00 02/20/18 08:00 02/20/18 12:00 Temperature 97.9 F 97.7 F 98.9 F Pulse Rate 59 L 59 L 74 Respiratory Rate 18 16 18 Blood Pressure 117/64 135/80 130/78 Pulse Oximetry 98 98 98 Intake & Output 02/19/18 02/20/18 02/20/18 18:59 06:59 18:59 Intake Total 1565 / 1565 615 / 615 1100 / 1100 Output Total 600 / 600 550 / 550 Balance 1565 / 1565 15 550 / 550 Intake: IV 1565 / 1565 615 / 615 1100 / 1100 NS Inj 1,000 ML @ 100 mls/hr IV 1000 / 1000 1000 / 1000 .CONT .Q10H [facility] Rx#:[id number] Zosyn 3.375 GM Premix 50 ML @ 50 / 50 100 / 100 100 / 100 100 mls/hr IV.SIG Q6HR [facility] Rx#: [id number] Vancomycin Inj 1,500 MG In NS 515 / 515 515 / 515 Inj 500 ML @ 257.5 mls/hr IV. SIG Q12H [facility] Rx#:[id number] Output: Urine 600 / 600 550 / 550 Other: Date of Last Bowel Movement 02/16/18 02/16/18 Narrative: Physical examination GENERAL: Patient is a well-nourished, well-developed male, awake and alert, not in respiratory distress. SKIN: Warm and dry. No generalized rash, no ecchymoses . HEAD: Atraumatic. Normocephalic. No temporal wasting, or tenderness. EYES: [place] conjunctiva. No petechia or hemorrhage. Pupils equal, round and reactive to light. Extraocular movements full and intact. No scleral icterus. No injection or drainage. EARS, NOSE AND THROAT: Nose without bleeding or purulent nasal discharge. No sinus tenderness. Mucous membranes pink and moist. No oral lesions noted. No exudate. No oral thrush. NECK: Trachea midline. Supple and not tender, no meningeal signs CARDIOVASCULAR: Regular rate and rhythm. No murmurs, rubs or gallops heard RESPIRATORY: Clear to auscultation. Breath sounds equal bilaterally. No rales , wheezing or rhonchi ABDOMEN: Soft, non-tender, nondistended. Bowel sounds present and normoactive. No guarding. No rebound. No organomegaly. EXTREMITIES: No clubbing, cyanosis, or edema. L hand LIF - there is an open ulcer wound about 1/2 inch diameter with white cream on it with some mild swelling noted and periwound erythema, moving all fingers, no lymphangitis noted NEUROLOGICAL: Awake and alert. Cranial nerves grossly intact. Motor grossly within normal limits. PSYCHIATRIC: Normal affect, calm and cooperative. LINE: No evidence of infection Results - Labs CBC & Chem 7: 02/20/18 09:28 02/20/18 09:28 Labs: Laboratory Results - last 24 hr 02/20/18 02/20/18 02/20/18 09:28 09:28 09:28 WBC 6.4 RBC 4.82 Hgb 14.3 Hct 41.4 MCV 85.8 MCH 29.6 MCHC 34.5 RDW 13.6 Plt Count 186 MPV 8.6 Neut % (Auto) 55.7 Lymph % (Auto) 28.9 Ogle % (Auto) 10.0 H Eos % (Auto) 3.6 Baso % (Auto) 1.8 Neut # (Auto) 3.5 Lymph # (Auto) 1.8 Ogle # (Auto) 0.6 Eos # (Auto) 0.2 Baso # (Auto) 0.1 WBC Differential . Differential Comment Auto diff final PT 11.3 INR 1.1 Sodium 145 Potassium 3.5 Chloride 110 H Carbon Dioxide 26.1 Anion Gap 9 BUN 8 Creatinine 0.83 Estimated GFR Greater than 89 Random Glucose 87 Calcium 8.0 L D Magnesium 2.1 Total Bilirubin 0.4 AST 11 L ALT 12 Alkaline Phosphatase 64 Total Protein 6.1 L D Albumin 2.8 L D Vancomycin Trough 02/20/18 13:45 WBC RBC Hgb Hct MCV MCH MCHC RDW Plt Count MPV Neut % (Auto) Lymph % (Auto) Ogle % (Auto) Eos % (Auto) Baso % (Auto) Neut # (Auto) Lymph # (Auto) Ogle # (Auto) Eos # (Auto) Baso # (Auto) WBC Differential Differential Comment PT INR Sodium Potassium Chloride Carbon Dioxide Anion Gap BUN Creatinine Estimated GFR Random Glucose Calcium Magnesium Total Bilirubin AST ALT Alkaline Phosphatase Total Protein Albumin Vancomycin Trough 15.1 H Assessment and Plan - Plan Impression Abscess LIF, cellulitis, C/S MRSA No S/Sxs of sepsis Recommendation Continue IV vanco Stop other Abx Once C/S finalized, choose oral agent for D/C and give about 10 days Wound care per hand surgery Thank you for this consultation
--- NOTE | 2018-02-20 16:00 | P.PNIM ---
Subjective Interval history: Patient seen and evaluated this morning at bedside. Patient denies subjective fever or chills. Patient reports that his pain is adequately controlled at this time. Physical Exam Vital signs: Last Vital Signs Temp 98.9 F 02/20/18 12:00 Pulse 74 02/20/18 12:00 Resp 18 02/20/18 12:00 BP 130/78 02/20/18 12:00 Pulse Ox 98 02/20/18 12:00 Intake & Output 02/18/18 02/19/18 02/20/18 02/21/18 06:59 06:59 06:59 06:59 Intake Total 1600 / 1600 2180 / 2180 1100 / 1100 Output Total 0 / 0 600 / 600 550 / 550 Balance 1600 / 1600 1580 / 1580 550 / 550 Weight 96.9 kg general: No acute distress, conversational Cardiovascular: S1/S2. No murmurs rubs or gallops noted Respiratory: Clear to auscultation anteriorly and posteriorly Gastro-intestinal: Soft, nontender, nondistended, no guarding or rebound appreciated. Extremity: 2+ radial pulse bilaterally upper extremity. Capillary refill less than 2 seconds Orthopedic: Left index finger ulcerated region. Positive swelling Results Labs CBC & Chem 7: 02/20/18 09:28 02/20/18 09:28 Labs: Microbiology 02/18/18 23:20 Abscess - Finger Gram Stain - Final 02/18/18 23:20 Abscess - Finger Wound Culture - Preliminary S. aureus MRSA 02/18/18 22:42 Blood - Peripheral Aerobic Blood Culture - Preliminary No growth in 2 days 02/18/18 22:42 Blood - Peripheral Anaerobic Blood Culture - Preliminary No growth in 2 days 02/18/18 22:47 Blood - Peripheral Aerobic Blood Culture - Preliminary No growth in 2 days 02/18/18 22:47 Blood - Peripheral Anaerobic Blood Culture - Preliminary No growth in 2 days Assessment and Plan (1) Infection of right hand: Code(s): L08.9 - Local infection of the skin and subcutaneous tissue, unspecified Status: Acute Plan orthopedics: Hand ulceration - ortho-hand consulted and recommendation appreciated. Patient cleared for outpatient follow-up in clinic - continue abx with vancomycin and follow-up official culture results. Preliminary MRSA with susceptibility to follow. On discharge patient will need 10 days antibiotic therapy - hand elevation and warm compression to aid blood flow Infectious disease recommendation appreciated code: fc dvt ppx dispo: med/surg diet: Regular diet Progress Note: Quality VTE Deep Vein Thrombosis/Pulmonary Embolism Present on Admission: No
[2018-02-21] MEDS: Vancomycin Inj 1,500 MG in Sodium Chlor 0.9% Inj 500 ML IV.SIG SCH (02:29)
[2018-02-21] MEDS: Piperacil/Tazo 3.375 GM Premix 50 ML IV.SIG SCH ×2 (05:22→13:39)
[2018-02-21] MEDS: Sod Chloride 0.9% Inj 1,000 ML IV.CONT SCH ×3 (05:32→13:39)
[2018-02-21] MEDS: Morphine Inj 4 MG/ML Vial IV.PUSH PRN (10:25)
--- NOTE | 2018-02-21 17:48 | P.DS ---
DS: Providers Date of admission: 02/19/18 00:07 Primary care physician: UNKNOWN Patient is a pleasant 32-year-old male who presented to hospital for left index finger wound likely secondary to bug bite 2 weeks prior to presentation which became superinfected afterwards. During hospitalization patient was evaluated by orthopedic surgery and infectious disease. Patient was initially treated with IV vancomycin with cultures obtained. Cultures returned positive for MRSA and patient was transitioned over to doxycycline for outpatient completion of therapy. Patient was cleared for discharge from orthopedic hand surgery perspective with outpatient follow-up in clinic. Patient instructed to use Silvadene cream to the wound twice daily with dressing and elevation. Patient remained afebrile while hospitalized without white blood cell count and clinically is stable for discharge. Consults: 02/18/18 23:57 Consult to Hand Surgery Routine Consulting Provider: Melchor Hanson Transit Mix Operator:: Melchor Hanson Reason for Consultation: right hand infection Notified:: Service Spoke with:: claudia Date Notified:: 02/19/18 Time Notified:: 00:26 Ordering Provider: ALEX 02/20/18 13:21 Consult to Infectious Diseases Routine Consulting Provider: Evelia Hodge Reason for Consultation: worsening hand ulcer/cellulitis with hand surgery consulted for washout. assistance with duration of abx when transitioned to oral Notified:: Service Spoke with:: ARIAS Date Notified:: 02/20/18 Time Notified:: 13:24 Ordering Provider: NOEMI Brief History from admission: 32-year-old male who presents with a 2-week history of worsening left base of first finger pain with purulent drainage. Patient reports subjective fevers. Denies any chest pain or shortness of breath. Patient denies any history of IV drug use. Patient reports using clindamycin 3 times a day times 3 days, provided by a colleague, however this ended 3 days ago and swelling has been getting worse.. DS: Diagnosis Discharge Diagnosis (1) Infection of right hand: Status: Acute DS: Summary Patient is a pleasant 32-year-old male who presented to hospital for left index finger wound likely secondary to bug bite 2 weeks prior to presentation which became superinfected afterwards. During hospitalization patient was evaluated by orthopedic surgery and infectious disease. Patient was initially treated with IV vancomycin with cultures obtained. Cultures returned positive for MRSA and patient was transitioned over to doxycycline for outpatient completion of therapy. Patient was cleared for discharge from orthopedic hand surgery perspective with outpatient follow-up in clinic. Patient instructed to use Silvadene cream to the wound twice daily with dressing and elevation. Patient remained afebrile while hospitalized without white blood cell count and clinically is stable for discharge. Time Spent with Patient Total time spent providing and/or coordinating discharge services: Quality: VTE Deep Vein Thrombosis/Pulmonary Embolism Present on Admission: No Exam Narrative Exam Narrative: General: No acute distress, conversational Cardiovascular: S1/S2. No notable murmur Respiratory: Clear to auscultation anteriorly and posteriorly without wheezing, rales, rhonchi Gastrointestinal: Soft, nontender, and nondistended Orthopedics: Dressing in place. Positive swelling. Bilateral radial pulses appreciated. Sensation intact. Capillary refill less than 2 seconds Results Labs on day of discharge: Preliminary micro results at discharge 02/18/18 22:42 Aerobic Blood Culture - Preliminary Blood - Peripheral No growth in 3 days Anaerobic Blood Culture - Preliminary No growth in 3 days 02/18/18 22:47 Aerobic Blood Culture - Preliminary Blood - Peripheral No growth in 3 days Anaerobic Blood Culture - Preliminary No growth in 3 days Impressions ITS Impressions Chest X-Ray 02/18/18 22:23 CONCLUSION: No acute cardiopulmonary disease identified. Hand X-Ray 02/18/18 22:23 CONCLUSION: Soft tissue swelling of the index finger. Otherwise within normal limits. Discharge Plan Discharge Disposition Patient Disposition: 01 Discharge Home Discharge Condition Condition: Good Discharge Order Discharge Orders: Discharge Order (Routine); Ordered 02/21/18 Ordered By: Nikos Bo Discharge Details Anticipated Discharge Date: 02/21/18 Discharge Comment: Silvadene cream twice daily to wound and cover with dry dressing Physicians Team ED Provider: Latasha Betancourt Primary Care Provider: UNKNOWN, Attending Provider: Nikos Bo Other Providers: Melchor Hanson ; Evelia Hodge Rxs /Orders / Referrals /Forms Prescriptions: New doxycycline monohydrate 100 mg capsule 100 mg PO BID 10 Days Qty: 20 RF: 0 silver sulfadiazine [Silvadene] 1 % cream 1 applic TOPICAL BID 14 Days Qty: 25 RF: 0 Referrals: Melchor Hanson MD [[facility]] - See Instructions (Silvadene cream twice daily to wound and cover with dry dressing follow up within 7 days ) UNKNOWN, [Primary Care Provider] - See Instructions Discharge Instructions Patient Printed Instructions: Silver Sulfadiazine (On the skin), Doxycycline ( By mouth), Wound Infection (DC) Additional Instructions: Follow up as directed and take medications as ordered. Dressing change 2 times a day with silver and dry dressing per dr orders. Status ED Status: Left Department Discharge Information Discharge Date/Time: 02/21/18 15:28
[2018-02-22] MEDS ORDERED: Pharmacy Ordered Lab Info OTHER ONE (01:45)
== END 2018-02-21 15:28 | disposition home or self-care (01) ==
LOC: NEPC 21:22 → NEDA 02-19 00:07 → NEPGCP 02-19 01:23
PROVIDERS: ADMIT Internal Medicine; ATTEND Internal Medicine